=== PATIENT | female | born 1950 | race Caucasian/White ===

== ENCOUNTER 2017-10-15 09:35 | Emergency (ER) ==
[2017-10-15 09:46] VITALS: BP 126/81; TEMP 96.1; BMI 21.9
--- NOTE | 2017-10-15 10:00 | ED.PDOC ---
General ED Provider: Dr. BRENDAN ZAMORA Chief Complaint: Earache Stated Complaint: Patient is a 67 year old female who comes to the ER complaining of left ear pain with some drainage. She had her Ears cleaned out about one month ago by ENT. 3 days ago she started having somd decreased hearing on th left ear with pain and loss of balance. Has not taken anything for pain today Time Seen by Physician: 09:58 Mode of Arrival: Walk-In Information Source: Patient Nursing and Triage Documentation Reviewed and Agree: Yes Does patient meet sepsis criteria?: No System Inflammatory Response Syndrome: Not Applicable Sepsis Protocol: For patient's 13 years and over: Temp is 96.8 and below OR 101 and greater Pulse >90 BPM Resp >20/minute Acutely Altered Mental Status Are patient's symptoms suggestive of a new infection, such as: -Pneumonia -Skin, Soft Tissue -Endocarditis -UTI -Bone, Joint Infection -Implantable Device -Acute Abdominal Infection -Wound Infection -Meningitis -Blood Stream Catheter Infection -Unknown EENT Complaint Exam - Ear Complaint/Exam Onset/Duration: 3 days Symptoms Are: Still present Timing: Constant Initial Severity: Moderate Current Severity: Severe Character: Reports: Aching pain, Throbbing pain. Denies: Dizzy, Room spinning, Sharp pain, Dull pain, Unable to describe Aggravating: Reports: Movement Alleviating: Reports: None Associated Signs and Symptoms: Reports: Discharge, Hearing loss, Pain to external ear. Denies: Ear trauma, Ear swelling, Headache, URI symptoms, Foreign body sensation, Rash, Pain to external face Ear Surgical History: None Vesicles to Tragus: No TMJ Tenderness: None Mastoid Tenderness: None Tragal Tenderness: None External Canal: Erythema, Tenderness Material in Canal: Present: Discharge Differential Diagnoses: Cerumen Impaction, Otitis Externa, Otitis Media Review of Systems - Review Of Systems Constitutional: Reports: No symptoms Eyes: Reports: No symptoms Ears, Nose, Mouth, Throat: Reports: Ear pain Respiratory: Reports: No symptoms Cardiac: Reports: No symptoms GI: Reports: No symptoms : Reports: No symptoms Musculoskeletal: Reports: No symptoms Skin: Reports: No symptoms Neurological: Reports: No symptoms Endocrine: Reports: No symptoms Hematologic/Lymphatic: Reports: No symptoms All Other Systems: Reviewed and Negative Past Medical History - Past Medical History Previously Healthy: Yes Endocrine: Reports: None Cardiovascular: Reports: None Respiratory: Reports: None Hematological: Reports: None Gastrointestinal: Reports: None Genitourinary: Reports: None Neuro/Psych: Reports: None Musculoskeletal: Reports: Arthritis Cancer: Reports: None Last Menstrual Period: 1991 - Surgical History General Surgical History: Reports: Orthopedic, Back Surgery - Family History Family History: Reports: None - Social History Smoking Status: Former smoker Hx Substance Use: (weed occasionally) Alcohol Screening: Occasionally - Immunizations Tetanus Shot up to Date: Yes Physical Exam - Physical Exam Appearance: Ill-appearing Ill-appearing: Mild Pain Distress: Moderate ENT: Erythema Neck: Supple Respiratory: Airway patent, Breath sounds clear, Breath sounds equal, Respirations nonlabored Cardiovascular: RRR, Pulses normal, No rub, No murmur Skin: Warm, Dry Neurological: Alert, Oriented Psychiatric: Anxious Critical Care Note - Critical Care Note Total Time (mins): 0 Course - Course Vital Signs: Temp Pulse Resp BP Pulse Ox 10/15/17 09:35 96.1 F L 52 L 16 126/81 97 Departure - Departure Time of Disposition: 09:59 Disposition: HOME SELF-CARE Discharge Problem: Otitis externa Qualifiers: Otitis externa type: unspecified type Chronicity: acute Laterality: left Qualified Code(s): H60.502 - Unspecified acute noninfective otitis externa, left ear Instructions: Otitis Externa (ED) Condition: Fair Pt referred to PMD for follow-up: Yes IPMP verified?: No Additional Instructions: Take pain medications as prescribed Use ear drops 2-3 drops 4-5 times a day for 10 days Follow up with PCP In 3 days Prescriptions: Neomycin/Polymyxin B/Hc Otic [Cortisporin Otic Susp] 3 drop OT Q6H #10 drops.susp Tramadol HCl [Ultram] 50 mg PO Q6H PRN #7 tablet PRN Reason: Severe Pain Allergies/Adverse Reactions: Allergies sulfamethoxazole [From Bactrim] Adverse Reaction (Intermediate, Unverified 10/15 09:48) Makes hands and feet itch trimethoprim [From Bactrim] Adverse Reaction (Intermediate, Unverified 10/15/17 09:48) Makes hands and feet itch Home Medications: Ambulatory Orders Neomycin/Polymyxin B/Hc Otic [Cortisporin Otic Susp] 3 drop OT Q6H #10 drops.susp 10/15/17 Tramadol HCl [Ultram] 50 mg PO Q6H PRN #7 tablet 10/15/17 Disposition Discussed With: Patient
== END 2017-10-15 10:26 | disposition home or self-care (01) ==
LOC: ED 09:35
DX: H60.502 Unspecified acute noninfective otitis externa, left ear (principal)
CPT/HCPCS: 99282

== ENCOUNTER 2017-11-11 14:44 | Outpatient (CLI) | END 2017-11-11 14:45 | disposition home or self-care (01) | LOC: FCC-LAB 14:44 | PROVIDERS: ATTEND Family Medicine | DX: K62.5 Hemorrhage of anus and rectum (principal); Z87.898 Personal history of other specified conditions | CPT/HCPCS: 36415; 80053; 82272; 85025 ==

== ENCOUNTER 2017-11-16 11:01 | Outpatient (CLI) | END 2017-11-16 11:02 | disposition home or self-care (01) | LOC: FCC-LAB 11:01 | PROVIDERS: ATTEND Family Medicine | DX: K62.5 Hemorrhage of anus and rectum (principal) | CPT/HCPCS: 82272 ==

== ENCOUNTER 2018-06-23 12:05 | Outpatient (CLI) | payer OTHER ==
--- NOTE | 2018-06-23 12:47 | DI ---
Exam: Four views of the left knee. Comparison: None available. Reason for exam: Pain in left knee. FINDINGS: No acute fracture or dislocation. Mild degenerative disease is seen in the joint space. No unexplained calcific soft tissue density or radiopaque retained foreign body. Impression: No acute fracture or dislocation in the left knee with mild degenerative disease and chondrocalcinosi s
== END 2018-06-23 12:06 | disposition home or self-care (01) ==
LOC: RAD 12:05
PROVIDERS: ATTEND Family Medicine
DX: M25.562 Pain in left knee (principal)

== ENCOUNTER 2018-07-13 11:06 | Emergency (ER) | payer OTHER ==
[2018-07-13 11:13] VITALS: BP 156/81; TEMP 98.7; BMI 23.3
--- NOTE | 2018-07-13 12:05 | ED.PDOC ---
General ED Provider: Dr. ISREAL MOROCHO Chief Complaint: Fall Stated Complaint: Mid to lower back pain. Fell landing on a box on the floor Time Seen by Physician: 11:50 Mode of Arrival: Walk-In Information Source: Patient Exam Limitations: No limitations Primary Care Provider: CAMILLA CORREIA Nursing and Triage Documentation Reviewed and Agree: Yes Does patient meet sepsis criteria?: No System Inflammatory Response Syndrome: Not Applicable Sepsis Protocol: For patient's 13 years and over: Temp is 96.8 and below OR 101 and greater Pulse >90 BPM Resp >20/minute Acutely Altered Mental Status Are patient's symptoms suggestive of a new infection, such as: -Pneumonia -Skin, Soft Tissue -Endocarditis -UTI -Bone, Joint Infection -Implantable Device -Acute Abdominal Infection -Wound Infection -Meningitis -Blood Stream Catheter Infection -Unknown Musculoskeletal Complaint Exam - Back Pain Complaint/Exam Mechanism of Injury: Reports: Trauma Onset/Duration: YESTERDAY Symptoms Are: Still present Timing: Constant Episodes Lasting: Hours Initial Severity: Moderate Current Severity: Moderate Location: Reports: Diffuse Character: Reports: Sharp, Aching, Stiffness, Burning Aggravating: Reports: Movements Alleviating: Reports: Rest Associated Signs and Symptoms: Reports: Redness, Bruising. Denies: Swelling, Fever, Weakness, Numbness, Tingling, Abdominal pain, Flank pain, Bladder incontinence, Bowel incontinence, Weight loss, Pain with weight bearing TAD Risk Factors: Reports: None AAA Risk Factors: Reports: None Cauda Equina Risk Factors: Reports: None Epidural Abcess Risk Factors: Reports: None Related Surgical History: Reports: None Focal Tenderness: Yes Paraspinal Muscle Tenderness: Yes Paraspinal Muscle Spasm: No Scoliosis: No Lordosis: Yes Kyphosis: No SLR Test: Right Negative, Left Negative Hip Motion Testing Pain: Right Negative, Left Negative Review of Systems - Review Of Systems Constitutional: Reports: No symptoms Eyes: Reports: No symptoms Ears, Nose, Mouth, Throat: Reports: No symptoms Respiratory: Reports: No symptoms Cardiac: Reports: No symptoms GI: Reports: No symptoms : Reports: No symptoms Musculoskeletal: Reports: No symptoms, Back pain Skin: Reports: No symptoms Neurological: Reports: No symptoms Endocrine: Reports: No symptoms Hematologic/Lymphatic: Reports: No symptoms All Other Systems: Reviewed and Negative Past Medical History - Past Medical History Previously Healthy: Yes Endocrine: Reports: None Cardiovascular: Reports: None Respiratory: Reports: None Hematological: Reports: None Gastrointestinal: Reports: None Genitourinary: Reports: None Neuro/Psych: Reports: None Musculoskeletal: Reports: Arthritis Cancer: Reports: None Last Menstrual Period: menopause - Surgical History General Surgical History: Reports: Orthopedic, Back Surgery - Family History Family History: Reports: None - Social History Smoking Status: Former smoker Hx Substance Use: (weed occasionally) Alcohol Screening: Occasionally Physical Exam - Physical Exam Appearance: Well-appearing, No pain distress, Well-nourished Ill-appearing: None Pain Distress: Moderate Eyes: LANNY, EOMI, Conjunctiva clear ENT: Ears normal, Nose normal, Oropharynx normal Respiratory: Airway patent, Breath sounds clear, Breath sounds equal, Respirations nonlabored Cardiovascular: RRR, Pulses normal, No rub, No murmur GI/: Soft, Nontender, No masses, Bowel sounds normal, No Organomegaly Musculoskeletal: Normal strength, ROM intact, No edema, No calf tenderness Skin: Warm, Dry, Normal color Neurological: Sensation intact, Motor intact, Reflexes intact, Cranial nerves intact, Alert, Oriented Psychiatric: Affect appropriate, Mood appropriate Critical Care Note - Critical Care Note Total Time (mins): 0 Course - Course Orders, Labs, Meds: Orders Category Date Time Status CT LUMBAR SPINE W/O CONTRAST Stat RADS 07/13/18 12:[address] THORACIC SPINE W/O CONTRAST Stat RADS 07/13/18 12:03 Completed Vital Signs: Temp Pulse Resp BP Pulse Ox 07/13/18 11:08 98.7 F 71 20 156/81 H 98 Departure - Departure Time of Disposition: 13:35 Disposition: HOME SELF-CARE Discharge Problem: Contusion of thoracic wall, Strain of thoracic region Instructions: Contusion in Adults (ED), Thoracic Back Strain (ED) Condition: Good Pt referred to PMD for follow-up: Yes (as needed) IPMP verified?: No Additional Instructions: Keep wound clean and dry Apply antibiotic ointment daily until area of abrasion healed Ice pack to areas of swelling Increase activity as tolerated Advil or tylenol as needed for pain relief Allergies/Adverse Reactions: Allergies tramadol Allergy (Verified 07/13/18 11:14) sulfamethoxazole [From Bactrim] Adverse Reaction (Intermediate, Verified 11:14) Makes hands and feet itch trimethoprim [From Bactrim] Adverse Reaction (Intermediate, Verified 07/13/18 11 :14) Makes hands and feet itch Home Medications: Ambulatory Orders Calcium Carbonate [Calcium] 500 mg PO DAILY 04/07/18 Magnesium Amino Acid Chelate [Magnesium] 27 mg PO DAILY 04/07/18 Multivitamin [Daily Miles] 1 each PO DAILY 04/07/18 Ascorbic Acid [Vitamin C] 1,000 mg PO DAILY 05/24/18 Ascorbic Acid/Vitamin E/Biotin [Hair Skin Nails-Biotin Gummies] 1 each PO DAILY 05/24/18 Vitamin E Mixed [Vitamin E] 1,000 unit PO DAILY 05/24/18 Disposition Discussed With: Patient
--- NOTE | 2018-07-13 13:11 | CT ---
EXAM: CT of the thoracic spine without contrast History: Thoracic spine trauma. Comparison: CT of the lumbar spine 07/13/2018 Technique: Multiplanar CT images through the thoracic spine were obtained without the administration of IV contrast Findings: No acute fracture or subluxation of the thoracic spine. Moderate multilevel disc space narrowing of the thoracic spine with endplate sclerosis, osteophyte formation and vacuum disc phenomenon. Severe degenerative disc disease within the visualized lower cervical spine. Bony spinal canal is not signi ficantly compromised. Impression: No acute osseous abnormality of the thoracic spine. Degenerative changes
--- NOTE | 2018-07-13 13:15 | CT ---
EXAM: CT of the lumbar spine without contrast History: Lower back trauma. Comparison: None available. Technique: Multiplanar CT images through the lumbar spine were obtained without the administration o f IV contrast Findings: Atherosclerotic vascular calcifications. No acute fracture or subluxation of the lumbar spine. Grossly intact posterior fusion hardware at L5 -S1. Moderate disc space narrowing at L3-L4 with endplate sclerosis and osteophyte formation. [place] us deformity of the left iliac bone probably due to old trauma. T12-L1: No significant bony central canal stenosis or bony neural foraminal narrowing. L1-L2: No significant bony central canal stenosis or bony neural foraminal narrowing. L2-L3: No significant bony central canal stenosis. Mild to moderate bilateral bony neural foraminal narrowing secondary to ligamentous and facet hypertrophy. L3-L4: Prominent disc bulge effacing anterior thecal sac with mild to moderate central canal stenosi s. There is triangulation of the thecal sac. Moderate to severe left and moderate right bony neural foraminal narrowing secondary to ligamentous and facet hypertrophy. L4-L5: Small disc bulge with mild central canal stenosis. Moderate to severe left and moderate righ t bony neural foraminal narrowing secondary to ligamentous and facet hypertrophy. L5-S1: No significant bony central canal stenosis. Moderate bilateral bony neural foraminal narrowi ng. Impression: No acute osseous abnormality of the lumbar spine
== END 2018-07-13 14:14 | disposition home or self-care (01) ==
LOC: ED 11:06
DX: S29.012A Strain of muscle and tendon of back wall of thorax, initial encounter (principal); S20.20XA Contusion of thorax, unspecified, initial encounter; W19.XXXA Unspecified fall, initial encounter
CPT/HCPCS: 99282